=== PATIENT | female | born 1965 | race Two or more races ===

== ENCOUNTER → 2025-05-31 | Outpatient (CLI) | payer MEDICAID, SELFPAY ==
--- NOTE | 2025-05-31 16:00 | XR_ITS ---
Examination: CT chest, without intravenous contrast. Sagittal and coronal 2-D reconstructions. Exam date and time: May 31, 2025, 1620 hours INDICATIONS: Shortness of breath dyspnea beginning 2 years ago. CTDI:vol (mGy) 13.5 DLP: (mGycm) 432 Technique: Multiple 3.0 mm axial sections of the chest to been obtained. Bone and lung density settings are obtained. Sagittal and coronal 2-D reconstructions have been obtained. Low dose protocols were performed. One or more of the following dose reduction techniques were used; automated exposure control, adjustment of the mA and/or KV according to patient size, use of iterative reconstruction technique. Findings: Multiple abnormal enlarged right axillary lymph nodes, the largest 24 mm No thoracic aortic aneurysmal dilatation Pulmonary artery segments are not enlarged Prominent calcification left anterior descending coronary artery. No paratracheal tracheobronchial or bronchopulmonary adenopathy. No pneumonia or pulmonary edema or pleural disease No visualized liver or splenic lesion Absent gallbladder No pancreatic or adrenal mass Prominent osteopenia IMPRESSION: Multiple enlarged abnormal right axillary lymph nodes, recommend diagnostic mammography, bilateral breast sonography follow-up No pneumonia, pulmonary edema or pleural disease
== END | disposition home or self-care (01) ==
LOC: CCTX 15:09
PROVIDERS: PCP Nurse Practitioner Family; Referring Provider Internal Medicine Critical Care Medicine; Visit Provider Internal Medicine Critical Care Medicine
DX: R05.9 Cough, unspecified (principal)
CPT/HCPCS: 71250